=== PATIENT | male | born 1980 | race Caucasian/White ===

== ENCOUNTER 2020-03-25 22:44 | Emergency (ER) | payer MEDICAID ==
[~2020-03-25] VITALS: Ht 185.4 cm; Wt 86.4 kg
[2020-03-25 22:52] VITALS: BP 121/59
[2020-03-25] MEDS ORDERED: ondansetron 4mg rapidly disintigrating tab PO ONE (23:35)
[2020-03-25] MEDS ORDERED: ONDA4TAB6 PO (23:45)
== END 2020-03-25 23:58 | disposition home or self-care (01) ==
LOC: ER 22:45
DX: R11.2 Nausea with vomiting, unspecified (principal); Z72.89 Other problems related to lifestyle; Z79.899 Other long term (current) drug therapy
CPT/HCPCS: 99283

== ENCOUNTER 2020-10-02 13:09 | Emergency (ER) | payer MEDICARE, MEDICAID ==
[~2020-10-02] VITALS: Ht 185.4 cm; Wt 127.3 kg
[~2020-10-02 13:09] MED LIST: ONDA4TAB6 PO
[2020-10-02 13:22] VITALS: BP 117/66
[2020-10-02] MEDS ORDERED: ketorolac tromethamine 15mg/ml inj. IM ONE (14:25)
[2020-10-02] MEDS ORDERED: cyclobenzaprine 10mg tablet PO ONE (14:25)
[2020-10-02] MEDS ORDERED: diazepam 5mg tablet PO ONE (14:25)
[2020-10-02] MEDS ORDERED: ORPH100T2 PO (15:25)
[2020-10-02] MEDS ORDERED: IBUP-1984 PO (15:25)
== END 2020-10-02 15:49 | disposition home or self-care (01) ==
LOC: ER 13:10
DX: S16.1XXA Strain of muscle, fascia and tendon at neck level, initial encounter (principal); Z72.89 Other problems related to lifestyle; Z98.890 Other specified postprocedural states; X50.9XXA Other and unspecified overexertion or strenuous movements or postures, initial encounter; Y93.89 Activity, other specified; Y92.89 Other specified places as the place of occurrence of the external cause; Y99.8 Other external cause status
CPT/HCPCS: 96372; 99283; J1885

== ENCOUNTER 2022-01-14 10:43 | Emergency (ER) | payer BC, MEDICAID ==
[~2022-01-14] VITALS: Ht 185.4 cm; Wt 93.0 kg
[~2022-01-14 10:43] MED LIST changes: +ORPH100T2 PO
[2022-01-14 11:56] LABS: CLARITY,URINE CLEAR (Clear); COLOR,URINE YELLOW (Yellow); GLUCOSE, URINE NEGATIVE (Neg); KETONES,URINE NEGATIVE (Neg); LEUKOCYTE ESTERASE ,URINE NEGATIVE (Neg); NITRITES, URINE NEGATIVE (Neg); OCCULT BLOOD,URINE NEGATIVE (Neg); PROTEIN,URINE NEGATIVE (Neg); UROBILINOGEN,URINE 0.2 E.U/dL (0.2-1.0)
[2022-01-14 12:03] LABS: UA COLLECTION TYPE CLN CATCH MIDSTREAM
[2022-01-14] MEDS ORDERED: FLO0.4C PO (15:35)
[2022-01-14] MEDS ORDERED: FAMO40TA58 PO (15:35)
[2022-01-14] MEDS ORDERED: OMEP40CA21 PO (15:35)
[2022-01-14 15:45] VITALS: BP 103/70
== END 2022-01-14 15:47 | disposition home or self-care (01) ==
LOC: ER 10:45
DX: R39.15 Urgency of urination (principal); R31.9 Hematuria, unspecified; R10.9 Unspecified abdominal pain; R30.9 Painful micturition, unspecified; K21.9 Gastro-esophageal reflux disease without esophagitis; Z87.11 Personal history of peptic ulcer disease; Z72.89 Other problems related to lifestyle; Z79.899 Other long term (current) drug therapy
CPT/HCPCS: 81003; 99283

== ENCOUNTER 2024-08-01 11:40 | Emergency (ER) | payer MEDICARE, MEDICAID ==
[~2024-08-01] VITALS: Ht 185.4 cm; Wt 90.7 kg
[~2024-08-01 11:40] MED LIST changes: +FAMO40TA58 PO; -ORPH100T2 PO; +ORPH100T4 PO
[2024-08-01] MEDS ORDERED: AMOX-117 PO (14:47)
[2024-08-01] MEDS ORDERED: CIPR10DR LEFT EAR (14:47)
[2024-08-01 14:53] VITALS: BP 132/70; PULSE 60; RESP 16; TEMP 98.9; O2SAT 99
== END 2024-08-01 14:54 | disposition home or self-care (01) ==
LOC: ER 11:40
DX: H60.92 Unspecified otitis externa, left ear (principal); L01.00 Impetigo, unspecified; K21.9 Gastro-esophageal reflux disease without esophagitis; F17.200 Nicotine dependence, unspecified, uncomplicated; Z79.899 Other long term (current) drug therapy; Z87.11 Personal history of peptic ulcer disease
CPT/HCPCS: 99283

== ENCOUNTER 2025-01-30 13:36 | Emergency (ER) | payer MEDICARE, MEDICAID ==
[~2025-01-30] VITALS: Ht 185.4 cm; Wt 86.7 kg
[2025-01-30 13:44] VITALS: BP 112/60; PULSE 56; RESP 16; O2SAT 99
[2025-01-30] MEDS ORDERED: OFLO5DRO5 RIGHT EAR (13:55)
[2025-01-30] MEDS ORDERED: AMOX-100 PO (13:55)
--- NOTE | 2025-01-30 13:55 | Physician Documentation ---
History of Present Illness ~ Chief Complaint: Ear Pain Stated Complaint: EAR PAIN Time Seen by MD: 13:50 Primary Medical Doctor: [facility] Source: patient Mode of Arrival: POV Exam Limitations: no limitations HPI 44-year-old male with complaints of right ear pain x2 days. No discharge from ear no hearing difficulty. Patient states that his friend looked in his ear and had a cut in his ear. Medication Reconciliation Allergies: Coded Allergies: No Known Allergies (Unverified , 01/30/25) Scheduled Famotidine (Famotidine), 1 TAB PO DAILY Ondansetron Hcl (Zofran), 1 TAB PO Q6H Orphenadrine Citrate (Norflex), 1 TAB PO Q12H PRN Past Medical History Past Medical History: GERD, Peptic Ulcer Disease Past Surgical History: no surgical history Alcohol Use: Occasionally Drug Use: none Lives with: Family Lives In: Home Review of Systems All Other Systems at this time: Reviewed and Negative ENT: Reports: see HPI Physical Exam Vital Signs: RN Vital Signs have been reviewed: Yes, Temperature: 97.6, Source: Temporal, Heart Rate: 56, Respiratory Rate: 16, BP: 112/60, Pulse Oximetry: 99, Weight: 86.700 Oxygen Flow Rate: 0 General Appearance: alert, WD/WN, no apparent distress Ear: auricle normal, erythema, swelling, tenderness Ear Erythema and swelling unable to fully visualize tympanic membrane of the right ear. External canal swollen with erythema painful during examination Progress Results/Orders Results/Orders Vital Signs 01/30/25 13:44 Temp 97.6 Pulse 56 Resp 16 B/P (MAP) 112/60 Pulse Ox 99 O2 Flow Rate 0 Medical Decision Making Findings External ear canal with swelling and erythema painful with manipulation no signs of mastoiditis Departure Time of Disposition: 13:54 Disposition: 01 HOME / SELF CARE / HOMELESS Impression: Primary Impression: Otitis externa Condition: Stable Discharge Instructions: Earache, Adult Additional Instructions: Use antibiotic ear drops as prescribed follow up with primary care Referrals: NO PRIMARY CARE PROVIDER (PCP) Prescriptions Amoxicillin Trihydrate (Amoxicillin) 500 Mg Capsule 1 CAP PO Q12H for 10 Days, #20 CAP Prov: POLY MÉNDEZ NP 01/30/25 Ofloxacin (Ofloxacin) 0.3 % Drops 5 DROP RIGHT EAR Q12H, #5 ML 0 Refills Prov: POLY MÉNDEZ NP 01/30/25 Education Educated: Patient Educated regarding: diagnosis, treatment, need for follow up Signature Scribe Signature: No scribe Attestation: The note accurately reflects work and decisions made by me.Poly Méndez - DIRECTOR ELECTRICAL ENGINEERING 01/30/25 13:55 POLY MÉNDEZ NP Jan 30, 2025 13:55
[2025-01-30] MEDS: ibuprofen tablet 400 MG TABLET PO ONE (14:17)
[2025-01-30 14:19] VITALS: TEMP 97.6
== END 2025-01-30 14:20 | disposition home or self-care (01) ==
LOC: ER 13:36
DX: H60.91 Unspecified otitis externa, right ear (principal); K21.9 Gastro-esophageal reflux disease without esophagitis
CPT/HCPCS: 99283

== ENCOUNTER 2025-04-08 11:00 | Emergency (ER) | payer MEDICARE, MEDICAID ==
[~2025-04-08] VITALS: Ht 185.4 cm; Wt 80.9 kg
[~2025-04-08 11:00] MED LIST changes: +OFLO5DRO5 RIGHT EAR
[2025-04-08 11:13] VITALS: TEMP 97.8
--- NOTE | 2025-04-08 13:06 | Physician Documentation ---
History of Present Illness ~ Chief Complaint: Mechanical Fall Stated Complaint: KNEE PAIN Time Seen by MD: 12:47 Primary Medical Doctor: [facility] IN [facility] Presents after having a fall today where he felt like his knee gave out and he struck the right side of his head. He also states that he has developed ear pain. Denies any loss of consciousness Day of Fall: Apr 08, 2025 Tetanus within 5 Years?: No Medication Reconciliation Allergies: Coded Allergies: No Known Allergies (Unverified , 04/08/25) Scheduled Amoxicillin Trihydrate* (Amoxicillin*), 2 CAP PO Q12H Famotidine (Famotidine), 1 TAB PO DAILY Ofloxacin (Ofloxacin), 5 DROP RIGHT EAR Q12H Ondansetron Hcl (Zofran), 1 TAB PO Q6H Orphenadrine Citrate (Norflex), 1 TAB PO Q12H PRN Past Medical History Past Medical History: GERD, Peptic Ulcer Disease Past Surgical History: no surgical history Alcohol Use: Occasionally Drug Use: none Lives with: Family Lives In: Home Review of Systems All Other Systems at this time: Reviewed and Negative ROS As stated above in the HPI, otherwise all systems are reviewed and negative. Physical Exam Vital Signs: Temperature: 97.8, Source: Temporal, Heart Rate: 60, Respiratory Rate: 18, BP: 106/46, Pulse Oximetry: 100, Weight: 80.910 Physical Exam General: Alert, no apparent distress. HEENT: PERRL, EOMI, no injection, moist mucous membranes. Inflamed external auditory canal tympanic membrane is reddened and cloudy Extremities: Normal range of motion, no deformity. Notable effusion proximal to the right patella on the lateral aspect, positive Shyanne's test Neurologic: Oriented x4. Psychiatric: Normal mood and affect. Skin: Normal color, warm and dry. No edema, no ecchymosis. Progress Results/Orders Results/Orders Orders - KASH ROSALES NP Knee, Complete (04/08/25 12:47) Completed Orders - KASH ROSALES NP Knee, Complete (04/08/25 12:47) Vital Signs 04/08/25 04/08/25 11:13 13:34 Temp 97.8 Pulse 60 57 Resp 18 15 B/P (MAP) 106/46 107/74 Pulse Ox 100 100 Medical Decision Making Additional information obtaine: N/A Findings This patient presents with otitis media and otitis externa in addition to a suspected right knee effusion and possible meniscal tear. This will have to be confirmed by MRI in the outpatient setting. I am going to advise the patient of this and he can follow up Differential Dx:Considerations: Include: Closed head injury, Cardiac injury, Fracture(s), Intraabdominal injury, Pneumothorax, Cerebral contusion, Pulmonary contusion, Spine injury, Tracheal injury, Urological injury, Vascular injury, Abrasion(s), Contusion(s), Foreign body(s), Hematoma(s), Laceration(s), Encephalopathy, Other Departure Disposition: HOME / SELF CARE / HOMELESS Impression: Primary Impression: Fall Additional Impression: Otitis media Condition: Stable Discharge Instructions: Fall Prevention in the Home, Adult, [id number] Referrals: NO PRIMARY CARE PROVIDER (PCP) Prescriptions Amoxicillin Trihydrate* (Amoxicillin*) 500 Mg Capsule 2 CAP PO Q12H for 10 Days, #40 CAP Prov: KASH ROSALES NP 04/08/25 Education Educated: Patient Educated regarding: diagnosis Signature Scribe Signature: xc Attestation: Scribed for Kash Rosales Cloth Winder Machine Operator by Kash Daniel NP . 04/08/25 13:09 KASH ROSALES NP Apr 08, 2025 13:06
[2025-04-08] MEDS ORDERED: AMOX500C2 PO (13:07)
--- NOTE | 2025-04-08 13:12 | RADIOLOGY REPORT ---
DI KNEE, COMP 4 VW MIN, INDICATION: swelling TECHNICAL DATA: Frontal , oblique and lateral views were obtained of the right knee. COMPARISON: None FINDINGS: No fracture is identified. Medial, lateral and patellofemoral compartment joint spaces are maintained. Alignment is anatomic. Soft tissues are within normal limits. No joint effusion is demonstrated. IMPRESSION: No acute fracture or dislocation of the right knee.
[2025-04-08 13:34] VITALS: BP 107/74; PULSE 57; RESP 15; O2SAT 100
== END 2025-04-08 13:36 | disposition home or self-care (01) ==
LOC: ER 11:01
DX: M25.562 Pain in left knee (principal); H66.93 Otitis media, unspecified, bilateral; K21.9 Gastro-esophageal reflux disease without esophagitis; Z87.11 Personal history of peptic ulcer disease; Z72.89 Other problems related to lifestyle; Z79.899 Other long term (current) drug therapy; W18.30XA Fall on same level, unspecified, initial encounter; Y93.89 Activity, other specified; Y92.89 Other specified places as the place of occurrence of the external cause; Y99.8 Other external cause status
CPT/HCPCS: 73564; 99284

== ENCOUNTER 2025-06-06 07:21 | Emergency (ER) | payer MEDICARE, MEDICAID ==
[~2025-06-06] VITALS: Ht 185.4 cm; Wt 85.9 kg
--- NOTE | 2025-06-06 08:37 | Physician Documentation ---
History of Present Illness ~ Chief Complaint: Abscess Stated Complaint: ABSCESS ON CHIN Time Seen by MD: 07:53 Primary Medical Doctor: [facility] HPI Patient is a 44-year-old male who presents with an abscess on his chin that started as a pimple on , two days ago. Patient denies chills or fever. Tetanus Within 5 Years: No Medication Reconciliation Allergies: Coded Allergies: No Known Allergies (Unverified , 06/06/25) Scheduled Cephalexin*Monohydrate* (Keflex*), 1 CAP PO Q12H Famotidine (Famotidine), 1 TAB PO DAILY Ibuprofen (Ibu), 1 TAB PO Q6H Ofloxacin (Ofloxacin), 5 DROP RIGHT EAR Q12H Ondansetron Hcl (Zofran), 1 TAB PO Q6H Orphenadrine Citrate (Norflex), 1 TAB PO Q12H PRN Past Medical History Past Medical History: GERD, Peptic Ulcer Disease Past Surgical History: no surgical history Alcohol Use: Occasionally Drug Use: none Lives with: Family Lives In: Home Review of Systems ROS A 10 system review is negative except as noted in the HPI. Physical Exam Vital Signs: Temperature: 98.1, Source: Oral, Heart Rate: 76, Respiratory Rate: 20, BP: 121/74, Pulse Oximetry: 99, Weight: 85.900 Oxygen Flow Rate: 0 Physical Exam Examination of the face reveals a pointing abscess in the middle of the chin anteriorly. There is some surrounding cellulitis. Procedures I & D Procedure : Site: Chin Anesthesia: Lidocaine Volume Anesthetic (mls): 6 Blade Size: 11 Prep/Supplies: betadine prep, drapes applied, dressing applied Incision: pus drained, blood drained Tolerated Procedure Well?: yes, no complications Progress Results/Orders Results/Orders Completed Orders - SANDRA BOSCH MD Lidocaine 2% Viscous (Xylocaine 2% Visco (06/06/25 08:30) Lidocaine 1%/Pf 5ml (Xylocaine-Mpf 1% Vi (06/06/25 08:30) Cephalexin Capsule (Keflex Capsule) (06/06/25 08:30) Vital Signs 06/06/25 06/06/25 06/06/25 06/06/25 07:27 07:40 07:41 09:23 Temp 97.8 98.1 Pulse 90 76 74 Resp 18 20 20 B/P (MAP) 132/80 121/74 (90) 130/80 (97) Pulse Ox 99 99 100 O2 Flow Rate 0 0 0 06/06/25 09:47 Temp 98.0 Pulse 65 Resp 16 B/P (MAP) 109/67 Pulse Ox 100 Medical Decision Making Additional information obtaine: N/A Findings This 44-year-old man presented with an abscess on his chin that began as a p imple. It will require incision and drainage and this was accomplished by the mid level provider. Please see their procedure note. Differential Dx:Considerations: Include: Abscess; Unlikely: Bacteremia, Cellulitis, Erysipelas, Felon, Gas gangrene, Hidrademitis suppurativa, Impetigo, Lymphangitis, Osteromyelitis, Paronychia, Septicemia, Other Departure Time of Disposition: 09:42 Disposition: 01 HOME / SELF CARE / HOMELESS Impression: Primary Impression: Abscess Condition: Stable Discharge Instructions: Skin Abscess, [id number] Additional Instructions: Take antibiotics as prescribed use warm moist compress keep face an area clean and dry. Monitor for any new or worsening changes feel free to return to the ER. Referrals: NO PRIMARY CARE PROVIDER (PCP) Prescriptions Ibuprofen (Ibu) 600 Mg Tablet 1 TAB PO Q6H for 7 Days, #28 TAB 0 Refills Prov: JASS HERNANDEZ NP 06/06/25 Cephalexin*Monohydrate* (Keflex*) 500 Mg Capsule 1 CAP PO Q12H for 10 Days, #20 CAP Prov: JASS HERNANDEZ NP 06/06/25 Education Educated: Patient Educated regarding: diagnosis, treatment, need for follow up Signature Scribe Signature: . Attestation: . SANDRA BOSCH MD Jun 06, 2025 08:36 JASS HERNANDEZ NP Jun 06, 2025 09:43
[2025-06-06] MEDS: LIDOcaine 2% Viscous 15ml cup MM ONE (08:43)
[2025-06-06] MEDS: LIDOcaine 1%/PF 5ML 10 MG/ML VIAL SQ ONE (09:19)
[2025-06-06] MEDS ORDERED: IBUP-862 PO (09:43)
[2025-06-06] MEDS ORDERED: CEPH-585 PO (09:43)
[2025-06-06 09:47] VITALS: BP 109/67; PULSE 65; RESP 16; TEMP 98; O2SAT 100
== END 2025-06-06 09:48 | disposition home or self-care (01) ==
LOC: ER 07:22
DX: L02.01 Cutaneous abscess of face (principal); K21.9 Gastro-esophageal reflux disease without esophagitis; Z79.899 Other long term (current) drug therapy; Z87.11 Personal history of peptic ulcer disease; Z72.89 Other problems related to lifestyle
CPT/HCPCS: 10060; 99283; Z7610